=== PATIENT | female | born 1960 | race Caucasian/White ===

== ENCOUNTER → 2017-01-24 | Outpatient (CLI) | payer OTHER ==
[~2017-01-24] MED LIST: GADAVIST IV PRN; NXM/40 PO; ZNTT/150 PO
--- NOTE | 2017-01-24 10:25 | DIAGNOSTIC IMAGING REPORT ---
MRI OF THE CERVICAL SPINE WITH AND WITHOUT CONTRAST CLINICAL HISTORY: Neck pain. Right shoulder and arm tingling. COMPARISON: None. TECHNIQUE: Utilizing a 1.5 Susy magnet and dedicated coil, multiplanar, multiecho imaging of the cervical spine was performed before and after intravenous administration of 8 of Gadavist. FINDINGS: Alignment of the cervical spine is anatomic. Vertebral body heights are maintained. An 8 mm T1 and T2 hyperintense lesion within C7 vertebral body is consistent with a hemangioma. There is no suspicious marrow replacement. Cervical cord signal and caliber are normal. There is no intracanalicular mass or fluid collection. Paravertebral soft tissues are unremarkable. No abnormal enhancement is identified within the cervical canal. C2-C3: The central canal and neural foramen are patent. C3-C4: Mild posterior disc osteophyte complex is noted with a small central/right paracentral disc protrusion. This results in mild narrowing of the central canal. There is no neural foraminal stenosis. C4-C5: A central disc protrusion is noted which slightly indents the ventral aspect of the cord. This results in mild to moderate narrowing of the central canal. There is mild right neural foraminal stenosis. C5-C6: Disc bulge is noted with superimposed right paracentral disc protrusion which contacts the right ventral aspect of the cord. This results in moderate narrowing of the right aspect of the canal. There is severe narrowing of the right neural foramen due to facet arthrosis and uncovertebral hypertrophy. There is moderate narrowing of the left neural foramen. C6-C7: Left paracentral disc osteophyte complex is noted which results in mild narrowing of the left aspect of the canal. There is mild narrowing of the left neural foramen. C7-T1: The central canal and neural foramen are patent. IMPRESSION: 1. Moderate multilevel degenerative disc disease of the cervical spine, most pronounced the C5-C6 level where disc bulge with superimposed right paracentral disc protrusion contacts the right ventral aspect of the cord and results in moderate narrowing the right aspect of the canal. Severe right neural foraminal stenosis at this level. 2. Mild to moderate central canal stenosis at C4-C5 due to a central disc protrusion. 3. Normal cervical cord signal and caliber. Electronically signed by: Shay Morley M.D. 01/24/2017 10:23 AM Dictated Date/Time: 01/24/2017 10:15 AM
== END | disposition home or self-care (01) ==
LOC: C.MRI 09:26
PROVIDERS: ATTEND Family Medicine
DX: M50.322 Other cervical disc degeneration at C5-C6 level (principal); M50.20 Other cervical disc displacement, unspecified cervical region

== ENCOUNTER → 2017-06-29 | Outpatient (CLI) | payer OTHER ==
[~2017-06-29] MED LIST changes: -GADAVIST IV PRN
[2017-06-29 17:47] LABS: URINE APPEARANCE CLEAR (CLEAR); URINE BILIRUBIN NEG (NEG); URINE COLOR YELLOW; URINE EPITHELIAL CELL AUTO >30 /lpf (0-5); URINE NITRITE NEG (NEG); URINE SPECIFIC GRAVITY 1.015 (1.000-1.030); UROBILINOGEN NEG (NEG)
[2017-06-29 17:48] LABS: MANUAL MICROSCOPIC REQUIRED? NO; REVIEW REQ? NO
== END | disposition home or self-care (01) ==
LOC: C.LABSPEC 15:57
PROVIDERS: ATTEND Family Medicine
DX: R39.9 Unspecified symptoms and signs involving the genitourinary system (principal)

== ENCOUNTER → 2018-03-06 | Outpatient (CLI) | payer BC, OTHER ==
[~2018-03-06] MED LIST changes: +RANI150T85 PO; -ZNTT/150 PO
[2018-03-06 13:56] LABS: BLOOD UREA NITROGEN 11 mg/dl (7-18); CALCIUM 9.2 mg/dl (8.5-10.1); CARBON DIOXIDE 26 mmol/L (21-32); CHOLESTEROL 189 mg/dl (0-200); CREATININE 0.93 mg/dl (0.60-1.20); GLUCOSE 83 mg/dl (70-99); LDL CHOLESTEROL CALCULATED 140 mg/dl; POTASSIUM 4.1 mmol/L (3.5-5.1); SODIUM 137 mmol/L (136-145)
== END | disposition home or self-care (01) ==
LOC: C.LABPBG 08:45
PROVIDERS: ATTEND Family Medicine
DX: Z13.220 Encounter for screening for lipoid disorders (principal); K21.9 Gastro-esophageal reflux disease without esophagitis